=== PATIENT | female | born 2000 | race Hispanic/Latino ===

== ENCOUNTER 2018-08-06 16:57 | Emergency (ER) | payer MEDICAID, OTHER ==
[2018-08-06 17:21] LABS: APPEARANCE,URINE Clear (CLEAR); BILIRUBIN,URINE Negative (NEGATIVE); COLOR,URINE Yellow (YELLOW); GLUCOSE, URINE (UA) Negative (NEGATIVE); KETONES,URINE Negative (NEGATIVE); LEUKOCYTE ESTERASE ,URINE Moderate (NEGATIVE); NITRATE,URINE Positive (NEGATIVE); OCCULT BLOOD,URINE Moderate (NEGATIVE); PH,URINE 6.5 (5.0-8.0); PROTEIN,URINE Negative (NEGATIVE)
[2018-08-06 17:23] LABS: HCG,QUAL RESULT NEGATIVE (NEGATIVE)
[2018-08-06 17:28] LABS: BACTERIA,URINE Many /HPF (None Seen); MUCUS,URINE Few LPF (None Seen)
[2018-08-06] MEDS ORDERED: FAMOTIDINE 20MG TAB 20 MG TAB ONE (17:38)
[2018-08-06] MEDS ORDERED: CEFTRIAXONE SODIUM 1 GM ONE (17:38)
[2018-08-06] MEDS ORDERED: LIDOCAINE HCL-MPF 1% 2ML VIAL ONE (17:38)
[2018-08-06] MEDS ORDERED: ONDANSETRON ODT 4 MG TAB ONE (17:39)
== END 2018-08-06 18:49 | disposition home or self-care (01) ==
LOC: EDH 16:57
DX: N39.0 Urinary tract infection, site not specified (principal); K52.9 Noninfective gastroenteritis and colitis, unspecified; Z72.0 Tobacco use
CPT/HCPCS: 81001; 81025; 96372; 99284; J0696; J3490

== ENCOUNTER 2020-05-13 15:35 | Emergency (ER) | payer BC, MEDICAID ==
[2020-05-13] MEDS ORDERED: SODIUM CHLORIDE 0.9% 1000ML 1,000 ML IV ONE (16:48)
[2020-05-13] MEDS ORDERED: ACETAMINOPHEN EXTRA STRENGTH 500 MG TABLET ONE (16:48)
[2020-05-13 17:13] LABS: BASOPHILS % (AUTO) 0.2 % (0.0-5.0); EOSINOPHILS % (AUTO) 0.3 % (0.0-8.0); HEMATOCRIT 30.8 % (36-48); LYMPHOCYTES % (AUTO) 8.8 % (21.0-51.0); MEAN CORPUSCULAR HEMOGLOBIN 31.6 pg (27.0-33.0); MEAN CORPUSCULAR HGB CONC 35.1 g/dL (32.0-36.0); MEAN CORPUSCULAR VOLUME 90.1 fL (80-100); MONOCYTES % (AUTO) 4.5 % (3.0-13.0); NEUTROPHILS % (AUTO) 85.7 % (40.0-77.0); PLATELET COUNT (AUTO) 200 K/uL (130-400); RED BLOOD CELL COUNT(AUTO) 3.42 MIL/uL (4.00-5.50); RED CELL DISTRIBUTION WIDTH 11.8 % (11.0-15.5); WHITE BLOOD COUNT (AUTO) 12.6 K/uL (4.8-10.8)
[2020-05-13 17:24] LABS: CREATININE 0.6 mg/dL (0.5-1.5); POTASSIUM 3.4 mmol/L (3.5-5.1)
[2020-05-13 17:29] LABS: ALBUMIN 3.1 g/dL (3.5-5.0); BILIRUBIN,TOTAL 0.3 mg/dL (0.2-1.0); TOTAL PROTEIN, SERUM 6.8 g/dL (6.0-8.3)
[2020-05-13] MEDS ORDERED: POTASSIUM BICARB/CIT AC 25 MEQ TABLET.EFF ONE (17:50)
[2020-05-13 18:20] LABS: APPEARANCE,URINE Cloudy (CLEAR); BILIRUBIN,URINE Negative (NEGATIVE); COLOR,URINE Yellow (YELLOW); GLUCOSE, URINE (UA) Negative (NEGATIVE); KETONES,URINE Negative (NEGATIVE); LEUKOCYTE ESTERASE ,URINE Negative (NEGATIVE); NITRATE,URINE Negative (NEGATIVE); OCCULT BLOOD,URINE Negative (NEGATIVE); PH,URINE 6.5 (5.0-8.0); PROTEIN,URINE Negative (NEGATIVE)
[2020-05-13 18:43] LABS: BACTERIA,URINE Rare /HPF (None Seen); RBC,URINE 0-1 /HPF (0-1)
[2020-05-13 18:44] LABS: MUCUS,URINE Rare LPF (None Seen); SQUAMOUS EPITHELIAL CELL,UR Moderate /HPF (0-2)
== END 2020-05-13 19:51 | disposition home or self-care (01) ==
LOC: EDH 15:35
DX: O26.892 Other specified pregnancy related conditions, second trimester (principal); R55 Syncope and collapse; R42 Dizziness and giddiness; Z3A.18 18 weeks gestation of pregnancy
CPT/HCPCS: 36415; 76805; 80053; 81001; 85025; 93005; 96360; 96361; 99285; J7030

== ENCOUNTER 2020-06-21 12:32 | Observation (INO) | payer BC, MEDICAID | END 2020-06-21 13:52 | disposition home or self-care (01) | LOC: EDH 12:32 → LDH 12:33 | PROVIDERS: ADMIT Obstetrics & Gynecology; ATTEND Obstetrics & Gynecology | DX: O42.912 Preterm premature rupture of membranes, unspecified as to length of time between rupture and onset of labor, second trimester (principal); Z3A.24 24 weeks gestation of pregnancy | CPT/HCPCS: 59025; 99283; G0378 ==

== ENCOUNTER 2024-03-08 09:35 | Inpatient (IN) | payer MEDICAID ==
[~2024-03-08] VITALS: Ht 154.9 cm; Wt 78.0 kg
[~2024-03-08 09:35] MED LIST: ACET-2079 PO; FERS325 PO; PREN-18 PO
[2024-03-08] MEDS ORDERED: FAMOTIDINE 20MG VIAL IV PRN (11:00)
[2024-03-08] MEDS ORDERED: metoCLOPRAmide 10 MG/2 ML VIAL IVP PRN (11:00)
[2024-03-08 11:14] LABS: APPEARANCE,URINE CLEAR (CLEAR); BILIRUBIN,URINE NEGATIVE (NEGATIVE); COLOR,URINE YELLOW (YELLOW); GLUCOSE, URINE (UA) NEGATIVE (NEGATIVE); KETONES,URINE 5 mg/dL (NEGATIVE); LEUKOCYTE ESTERASE ,URINE NEGATIVE Leu/uL (NEGATIVE); NITRATE,URINE NEGATIVE (NEGATIVE); PROTEIN,URINE 20 mg/dL (NEGATIVE); UROBILINOGEN,URINE 12 mg/dL (0.2-1.0)
[2024-03-08 11:30] LABS: ADD UA MICROSCOPIC YES
[2024-03-08 11:36] LABS: HEMATOCRIT 33.9 % (36-48); MEAN CORPUSCULAR HEMOGLOBIN 31.5 pg (27.0-33.0); MEAN CORPUSCULAR HGB CONC 34.2 g/dL (32.0-36.0); MEAN CORPUSCULAR VOLUME 92.1 fL (79-99); RED BLOOD CELL COUNT(AUTO) 3.68 MIL/uL (4.00-5.50); RED CELL DISTRIBUTION WIDTH 12.2 % (11.0-15.5); WHITE BLOOD COUNT (AUTO) 7.9 K/uL (4.8-10.8)
[2024-03-08 11:52] LABS: BACTERIA,URINE RARE /HPF (None Seen); MUCUS,URINE RARE LPF (None Seen); SQUAMOUS EPITHELIAL CELL,UR MOD /HPF (0-2)
[2024-03-08 12:21] LABS: RAPID PLASMA REAGIN NONREACTIVE (NONREACTIVE)
[2024-03-08 13:47] LABS: HIV 1&2 ANTIBODY Non-Reactive (Negative); HIV-1 p24 Antigen Non-Reactive (Negative)
[2024-03-08] MEDS: LACTATED RINGERS 1000ML 1,000 ML IV SCH (14:20)
[2024-03-08] MEDS ORDERED: MISOPROSTOL 200 MCG TABLET ONE (15:17)
[2024-03-08] MEDS ORDERED: morPHINE PF 100MG/10ML AMP IV ONE (15:54)
[2024-03-08] MEDS ORDERED: FENTanyl CITRate PF 50 MCG/1 ML 2ML VIAL ONE (15:54)
[2024-03-08] MEDS: ceFAZolin SODIUM 2 GM VIAL IVP PRN (16:01)
[2024-03-08] MEDS: CITRIC ACID PO PRN (16:01)
[2024-03-08] MEDS: SODIUM CITRATE PO PRN (16:01)
[2024-03-08] MEDS ORDERED: ondanSETRON 4MG INJ ONE (16:27)
[2024-03-08] MEDS ORDERED: 0.9%NACL 10ML VIAL IVP PRN (17:00)
[2024-03-08] MEDS ORDERED: MEPERIDINE-PF 75 MG/ML SYG IM PRN (17:00)
[2024-03-08] MEDS: LORATAdine 10 mg 10 MG TABLET PO PRN (17:08)
[2024-03-08 19:15] VITALS: BP 103/58; PULSE 70; RESP 20; TEMP 98.1
[2024-03-08] MEDS: PROMETHAZINE HCL 25 MG/ML 1ML AMPULE IM PRN (20:17)
[2024-03-08] MEDS: MEPERIDINE-PF 50 MG/ML SYG IM PRN (20:18)
[2024-03-08] MEDS: MEPERIDINE-PF 25 MG/ML SYG IM PRN (20:19)
--- NOTE | 2024-03-08 22:33 | OP ---
DATE OF PROCEDURE: 03/08/2024 PREOPERATIVE DIAGNOSES: Intrauterine at term, previous , labor pain. POSTOPERATIVE DIAGNOSES: Intrauterine at term, previous , labor pain. OPERATIVE PROCEDURE: Repeat low segment transverse section. SURGEON: Raymond Murphy Jr., MD ANESTHESIA: Spinal. ESTIMATED BLOOD LOSS: 1000 mL. DESCRIPTION OF PROCEDURE: The patient was brought to the operating room and placed in supine position. After receiving a spinal block, returned to supine position where the abdomen was prepped and draped with a Betadine solution. After testing the adequacy of anesthetic, an incision was made 2-3 fingerbreadths above the symphysis pubic down through subcutaneous fat to the rectus fascia. The rectus fascia was incised in the midposition and then carried by using sharp dissection. Rectus muscles were retracted laterally. We entered into the abdominopelvic cavity without incident. Bladder blade was then placed. The visceral fold was incised in the midposition and carried by using sharp dissection. Lower uterine segment was then incised and clear fluid was noted and blunt dissection. A live was delivered with Apgars of 8 and 9 at 1 and 5 minutes, respectively. As baby was thoroughly suctioned, delivery time was given to the nursing team. Cord was clamped and cut. Three-vessel cord was noted. Placenta was manually removed. The uterus was exteriorized. The endometrial cavity cleaned with a moist lap. Uterus was used in 2 layers, first layer imbricating the myometrium, second layer imbricating the first layer as adequate hemostasis obtained. Tubes and ovaries were inspected. No gross lesions were noted. The uterus returned to the pelvic floor. We irrigated with copious amounts of Ringer's lactate. At this point, we proceeded to close the abdominal wall, the parietal peritoneum opened, fascia with 1-0 Vicryl and the skin was closed with ambrosio. The patient tolerated the procedure well. Lap and sponge counts, instrument counts were all noted to be correct. The patient tolerated the procedure well and transferred to recovery room in good condition. TID: [id number] RECEIPT: [id number]
[2024-03-08] MEDS: CALDOLOR 800MG+NS 250ML 250 ML IV SCH (23:00)
[2024-03-08 23:10] VITALS: BP 125/74; PULSE 73; RESP 18; TEMP 98.2
[2024-03-08] MEDS ORDERED: PREN1TAB80 PO ×2 (23:32)
[2024-03-09] MEDS: CALDOLOR 800MG+NS 250ML 250 ML IV SCH (01:26)
[2024-03-09] MEDS ORDERED: acetaMINOPHEN 500 MG TABLET PO PRN (02:30)
[2024-03-09] MEDS ORDERED: DiphenhydrAMINE HCL 25 MG CAPSULE PO PRN (02:30)
[2024-03-09] MEDS ORDERED: LANOLIN 30GM OINTMENT TP PRN (02:30)
[2024-03-09] MEDS ORDERED: HYDROcodone/APAP 5/325 1 TAB TABLET PO PRN (02:30)
[2024-03-09 03:27] VITALS: BP 102/61; PULSE 70; RESP 18; TEMP 98.2
[2024-03-09] MEDS: DEXTROSE 5 %-0.45 % NACL 1,000 ML IV PRN (03:45)
--- NOTE | 2024-03-09 06:30 | NUR ---
MEJIA CATH DISCONTINUED, CATH TIP INTACT, ROGER CARE DONE BLANCHE JOSE NOTED. .PT. ABD BINDER APPLIED. PT. INST TO CALL FOR ASSIST BEFORE GETTING OUT OF BED, VERBALIZED UNDERSTANDING. Addendum: 03/09/24 at 0651 by SAM FISH RN RN Amended: Links added.
[2024-03-09 06:34] LABS: HEMATOCRIT 28.2 % (36-48); MEAN CORPUSCULAR HEMOGLOBIN 31.5 pg (27.0-33.0); MEAN CORPUSCULAR HGB CONC 33.3 g/dL (32.0-36.0); MEAN CORPUSCULAR VOLUME 94.6 fL (79-99); RED BLOOD CELL COUNT(AUTO) 2.98 MIL/uL (4.00-5.50); RED CELL DISTRIBUTION WIDTH 12.3 % (11.0-15.5); WHITE BLOOD COUNT (AUTO) 11.7 K/uL (4.8-10.8)
[2024-03-09 07:15] VITALS: BP 97/58; PULSE 72; RESP 18; TEMP 98
[2024-03-09] MEDS ORDERED: BisaCODYL 10 MG SUPP.RECT RC PRN (09:00)
[2024-03-09] MEDS ORDERED: SIMETHICONE 80 MG TAB.CHEW PO PRN (09:00)
[2024-03-09] MEDS: doCUSate SODIUM 100 MG CAP PO SCH (09:48)
--- NOTE | 2024-03-09 10:00 | NUR ---
ASSISTED PATIENT OOB TO AMBULATE TO BATHROOM AND IN ROOM. PATIENT THEN AMBULATING VERY WELL INDEPENDENTLY IN ROOM. PATIENT STATES SHE FEELS FINE AND WANTING TO CONTINUE AMBULATING AND BEING OOB IN ROOM. SPOUSE IN ROOM ASSISTING HER WITH THEIR BABY.
[2024-03-09 11:00] VITALS: BP 105/59; PULSE 74; RESP 18; TEMP 98.2
--- NOTE | 2024-03-09 11:20 | NUR ---
PATIENT AMBULATING VERY WELL INDEPENDENTLY IN ROOM. Addendum: 03/09/24 at 1437 by JUNE MCCLELLAND RN RN Amended: Links added.
--- NOTE | 2024-03-09 14:00 | NUR ---
CALLED & SPOKE WITH DR CORDERO AT 1357, STATES NEED TO CALL THE ON-CALL MD FOR TODAY. CALLED AND SPOKE WITH DR MUÑIZ WHOM IS MD ON-CALL, NOTIFIED OF ABOVE, REVIEWED PATIENT STATUS, VITALS, LABS, MEDICATIONS, AND NOTIFIED NURSERY INFORMED BABY CAN BE DISCHARGED TODAY IF MOTHER IS DISCHARGED HOME TODAY. INFORMED PATIENT STATES SHE WOULD LIKE TO BE ABLE TO BE DISCHARGED HOME TODAY. T.O./READ BACK RECEIVED FROM DR NICOLE MUÑIZ TO DISCHARGE PATIENT HOME TODAY, FOR PATIENT TO FOLLOW UP WITH DR CORDERO IN 1 WEEK, AND PROVIDE PRESCRIPTION IN CHART DR CORDERO LEFT FOR PATIENT. NOTIFIED PATIENT OF DISCHARGE ORDER RECEIVED, NOTIFIED NURSERY NURSE HANK ROBLES.
[2024-03-09] MEDS: acetaMINOPHEN WITH coDEINE 1 TAB TAB PO PRN (14:25)
[2024-03-09 16:30] VITALS: BP 131/58; PULSE 87; RESP 18; TEMP 98
[2024-03-09] MEDS: ibuPROFEN 800 MG TAB PO SCH (17:16)
--- NOTE | 2024-03-09 17:25 | NUR ---
DISCHARGE INSTRUCTIONS DISCHARGE INSTRUCTIONS REVIEWED AND GIVEN TO PATIENT. PATIENT VERBALIZED UNDERSTANDING, NO FURTHER QUESTIONS OR CONCERNS VOICED. SPOUSE AT SIDE.
--- NOTE | 2024-03-09 17:50 | NUR ---
DISCHARGE PATIENT DISCHARGED HOME IN STABLE CONDITION, PATIENT TRANSPORTED BY MANJINDER WINSTON VIA WHEELCHAIR WITH HER BABY IN HER ARMS TO [employer] PRIVATE VEHICLE. SPOUSE AT SIDE TO DRIVE THEM HOME.
== END 2024-03-09 17:50 | disposition home or self-care (01) | DRG 540 ==
LOC: EDH 09:35 → OBSVTOIN 09:36 → LDH 09:36 → MERGE 09:36 → WSH 19:25
PROVIDERS: ADMIT Obstetrics & Gynecology; ATTEND Obstetrics & Gynecology
PROC: 10D00Z1 Extraction of Products of Conception, Low, Open Approach (ICD-10-PCS; principal; 2024-03-08 16:00)
DX: O34.211 Maternal care for low transverse scar from previous cesarean delivery (principal); Z37.0 Single live birth; Z3A.38 38 weeks gestation of pregnancy
CPT/HCPCS: 36415; 59510; 81001; 85027; 86592; 86701; 86850; 86900; 86901; 87340; 87390; A4344; G0378; J1741; J2175; J2210; J2274; J2405; J2550; J2590; J3010; J7042; J7120; A4248; J0690; L0625